=== PATIENT | male | born 1965 | race Caucasian/White ===

== ENCOUNTER 2017-04-06 19:15 | Inpatient (IN) | payer MEDICAID ==
[~2017-04-06] VITALS: Ht 185.4 cm; Wt 84.4 kg
[~2017-04-06 19:15] MED LIST: NO CURRENT MEDS
--- NOTE | 2017-04-06 19:15 | NUR ---
[facility] for c/o N/V w/ coffee ground emesis, hx liver cirrhosis, last drank etoh x tuesday. AOx4, afebrile w/ resp even & unlabored, denies any sob, no pain w/ no active N/V at this time, ble pedal edema+1, report recently had to have blood transfusions while at [facility] for GI bleed x last tuesday. On continuous monitoring. Dr. Hernandez at bedside for further eval.
[2017-04-06 19:47] LABS: BASOPHILS # (AUTO) 0.1 /CMM (0.0-0.2); BASOPHILS % (AUTO) 0.9 % (0.0-2.0); EOSINOPHILS # (AUTO) 0.1 /CMM (0.0-0.7); EOSINOPHILS % (AUTO) 0.9 % (0.0-6.0); LYMPHOCYTES # (AUTO) 2.3 /CMM (0.8-4.8); LYMPHOCYTES % (AUTO) 30.2 % (20.0-44.0); MEAN CORPUSCULAR HEMOGLOBIN 30 PG (26.0-33.0); MEAN CORPUSCULAR HGB CONC 34 g/dl (31.0-36.0); MEAN CORPUSCULAR VOLUME 86 fL (80-96); MONOCYTES # (AUTO) 0.7 /CMM (0.1-1.30); MONOCYTES % (AUTO) 9.5 % (2.0-12.0); NEUTROPHILS # (AUTO) 4.4 /CMM (1.8-8.9); NEUTROPHILS % (AUTO) 58.5 % (43.0-81.0); PLATELET COUNT (AUTO) 144 /CMM (150-450); RDW COEFFICIENT OF VARIATION 18.4 (11.5-15.0); RED BLOOD CELL COUNT(AUTO) 2.32 MIL/uL (4.5-6.0); WHITE BLOOD COUNT (AUTO) 7.6 K/uL (4.3-11.0)
[2017-04-06 19:51] LABS: HEMATOCRIT 20 % (39-51); HEMOGLOBIN 6.9 g/dL (13.5-17.5)
[2017-04-06 19:53] LABS: CALCIUM, SERUM 7.7 mg/dL (8.5-10.1); CREATININE 0.9 mg/dL (0.6-1.3); POTASSIUM 5.2 mmol/L (3.5-5.1)
[2017-04-06 19:58] LABS: INR 1.53 (0.87-1.13); PROTHROMBIN TIME 16.3 SECS (9.5-12.7)
[2017-04-06 20:03] LABS: ALBUMIN 1.8 g/dL (3.4-5.0); BILIRUBIN,DIRECT 0.3 mg/dL (0.0-0.2); BILIRUBIN,TOTAL 0.6 mg/dL (0.2-1.0); TOTAL PROTEIN, SERUM 5.7 g/dL (6.4-8.2)
--- NOTE | 2017-04-06 20:16 | NUR ---
Dr. Hernandez at bedside for update on pt status.
[2017-04-06] MEDS ORDERED: VITAMIN B1 PO (20:19)
[2017-04-06] MEDS ORDERED: PROP20TA22 PO (20:19)
[2017-04-06] MEDS ORDERED: CIPR500T5 PO (20:19)
[2017-04-06] MEDS ORDERED: FOLI1TAB16 PO (20:19)
--- NOTE | 2017-04-06 20:22 | NUR ---
Dr. Hernandez at bedside talking w/ pt, updating pt on risks and benefits of blood transfusion. Consent for blood transfusion signed & received by pt.
--- NOTE | 2017-04-06 20:29 | NUR ---
PAGED DR ANDREW CAPPS
[2017-04-06] MEDS ORDERED: PANTOPRAZOLE 80 MG in IV NS 0.9% 500 ML IV ONE (20:30)
[2017-04-06] MEDS ORDERED: OCTREOTIDE 1,250 MCG in IV NS 0.9% 250 ML IV ONE (20:30)
[2017-04-06] MEDS ORDERED: PANTOPRAZOLE 80 MG in IV NS 0.9% 100 ML IV ONE (20:30)
[2017-04-06] MEDS ORDERED: OCTREOTIDE 50 MCG/ML AMPUL IV ONE (20:30)
[2017-04-06] MEDS ORDERED: PANTOPRAZOLE 40 MG VIAL ONE (20:31)
[2017-04-06] MEDS ORDERED: IV NS 0.9% 100 ML IV ONE (20:31)
[2017-04-06] MEDS ORDERED: IV SET PRIMARY PUMP SET 1 EA INFUS.SET MC ONE (20:31)
[2017-04-06] MEDS ORDERED: OCTREOTIDE 100 MCG/ML VIAL ONE (20:32)
[2017-04-06 20:38] LABS: BAND % (MANUAL) 2 % (0.0-5.0); LYMPHOCYTES % (MANUAL) 26 % (16-48); MONOCYTES % (MANUAL) 2 % (0-11.0); NEUTROPHILS % (MANUAL) 70 (42-76); PLATELET ESTIMATE DECREASED
[2017-04-06 20:39] LABS: ANISOCYTOSIS 1+
--- NOTE | 2017-04-06 20:55 | NUR ---
Report given to EMMANUELLE Moe for pt admission to [facility] rm [id number].
--- NOTE | 2017-04-06 21:42 | NUR ---
pt resting comfortably in bed w/ resp even & unlabored, nad noted. On continuous monitoring. Awaiting midline nurse for midline insertion.
--- NOTE | 2017-04-06 22:04 | NUR ---
PAGED ANDREW CAPPS
--- NOTE | 2017-04-06 22:31 | NUR ---
Blood transfusion verified w/ EMMANUELLE Guzmán. Infusing as ordered, on continuous monitoring w/ no adverse side effects to blood products noted.
--- NOTE | 2017-04-06 22:31 | NUR ---
Dr. Mcclain at bedside for eval.
--- NOTE | 2017-04-06 22:51 | NUR ---
PT TRANSFERRED VIA GURNEY BY ALS PROTOCOL TO [facility] RM [id number], ON CONTINUOUS MONITORING W/ BLOOD TRANSFUSION INFUSING EN ROUTE AND ENDORSED TO EMMANUELLE DEL TORO FOR JER.
[2017-04-06 23:00] VITALS: BP 99/54
--- NOTE | 2017-04-06 23:15 | NUR ---
SENIOR FRONT END DEVELOPER; RECEIVED PT FROM ER AT 2255, PT IS A/O X4, AMBULATORY, ADMITTED FOR GI BLEED, LOW H/H, BLOOD TRANSFUSION ONGOING, ON ROOM AIR, SATURATING 98%, NO DISTRESS. ONLY ONE IV ACCESS ON LEFT EJ#18, AWAITING FOR MIDLINE LINE INSERTION. PT DENIED PAIN AT THIS TIME. V/S STABLE. AFEBRILE. ALL ADMISSION ASSESSMENT DONE. SKIN IS INTACT EXCEPT LEFT POSTERIOR ANKLE SOME KIND OF TISSUE GROWTH NOTED. PT IS FULL CODE, ADVANCE DIRECTIVE DISCUSSED WITH PT. PT WANTS TO FULL CODE. PT LIVES WITH FAMILY, DRINKS ALCOHOL EVERYDAY ALONG WITH SMOKE DAILY. SAFETY PRECAUTION PLACED. CALL LIGHT EASILY REACH. WILL FOLLOW UP MD ORDERS.
[2017-04-06] MEDS ORDERED: IV NS 0.9% 1,000 ML IV PRN (23:46)
--- NOTE | 2017-04-06 23:59 | NUR ---
BAR STEWARD; BLOOD TRANSFUSION ONGOING, NO ANY ADVERSE REACTION NOTED. SANDOSTATIN DRIP RUNNING AT 10 ML/HR. PROTONIX DRIP NOT STARTED YET DUE TO NO IV ACCESS, AWAITING PICC NURSE TO INSERT MIDLINE. PT IS VERY HARD STICK.
[2017-04-07] VITALS (7 sets, daily range): BP systolic 91–110; BP diastolic 45–60
[2017-04-07] MEDS ORDERED: MAG HYDROX/AL HYDROX/SIMETH 30 ML UDC PO PRN
[2017-04-07] MEDS ORDERED: ACETAMINOPHEN 325 MG TABLET PO PRN
[2017-04-07] MEDS ORDERED: MORPHINE SULFATE INJ 2 MG/ML DISP.SYRIN IV PRN
[2017-04-07] MEDS ORDERED: Z GUARD REMEDY 2 OZ OINT TP PRN
[2017-04-07] MEDS ORDERED: MAGNESIUM HYDROXIDE 30 ML UDC PO PRN
[2017-04-07] MEDS ORDERED: ONDANSETRON HCL/PF 4 MG/2 ML VIAL IVP PRN
[2017-04-07] MEDS ORDERED: OCTREOTIDE 1,250 MCG in IV NS 0.9% 247.5 ML IV PRN ×2
--- NOTE | 2017-04-07 00:55 | NUR ---
UNARMED SECURITY GUARD: IST UNIT OF PRBC DONE, NO REACTION NOTED. 2ND UOIN Addendum: 04/07/17 at 0057 by ELIJAH CHAMBERS RN 2ND UNIT ONGOING, THERE IS SOME ISSUE DURING VERIFYING BLOOD, ONE OF THE BARCODE DIDN'T SCAN BUT THE BARCODE NUMBERS ARE CORRECT. ABLE TO SCAN UNIT NUMBER BUT UNABLE TO SCAN PRODUCT NUMBER. VERIFIED WITH ANOTHER RN/EYAL CHARGE NURSE. KEEP MONITORING.
[2017-04-07] MEDS ORDERED: IV NS 0.9% 500 ML IV ONE (00:56)
[2017-04-07] MEDS ORDERED: BLOOD IV SET 1 EA INFUS.SET MC ONE (00:56)
[2017-04-07] MEDS ORDERED: IV NS 0.9% 1,000 ML ONE (01:25)
[2017-04-07] MEDS: PANTOPRAZOLE 80 MG in IV NS 0.9% 500 ML IV PRN ×2 (02:13→08:56)
[2017-04-07] MEDS ORDERED: CYAN100T3 PO (07:25)
--- NOTE | 2017-04-07 07:28 | NUR ---
INITIAL [facility] RN NOTE RCVD PT AWAKE AND ALERT SHOWING NO S/O DISTRESS OR C/O PAIN VERBALIZED. SR ON TELE W/OCCASIONAL PACs. CANE OBSERVED AT BEDSIDE PER PT HE USES IT TO SUPPORT HIS BACK INJURY. IV SITES C/D/I/PATENT. NO S/O INFILTRATION OR PHLEBITIS OBSERVED. IVF INFUSING. CALL LIGHT WITHIN REACH. BED IN LOW AND LOCKED POSITION. WILL CONTINUE TO MONITOR PT FOR SAFETY AND COMFORT.
[2017-04-07 07:32] LABS: BASOPHILS % (AUTO) 0.5 % (0.0-2.0); EOSINOPHILS # (AUTO) 0.1 /CMM (0.0-0.7); EOSINOPHILS % (AUTO) 1.4 % (0.0-6.0); HEMATOCRIT 21 % (39-51); HEMOGLOBIN 7.1 g/dL (13.5-17.5); LYMPHOCYTES # (AUTO) 1.4 /CMM (0.8-4.8); LYMPHOCYTES % (AUTO) 31.4 % (20.0-44.0); MEAN CORPUSCULAR HEMOGLOBIN 29 PG (26.0-33.0); MEAN CORPUSCULAR HGB CONC 33 g/dl (31.0-36.0); MEAN CORPUSCULAR VOLUME 87 fL (80-96); MONOCYTES # (AUTO) 0.5 /CMM (0.1-1.30); MONOCYTES % (AUTO) 11.2 % (2.0-12.0); NEUTROPHILS # (AUTO) 2.5 /CMM (1.8-8.9); NEUTROPHILS % (AUTO) 55.5 % (43.0-81.0); PLATELET COUNT (AUTO) 79 /CMM (150-450); RDW COEFFICIENT OF VARIATION 17.2 (11.5-15.0); RED BLOOD CELL COUNT(AUTO) 2.47 MIL/uL (4.5-6.0); WHITE BLOOD COUNT (AUTO) 4.5 K/uL (4.3-11.0)
[2017-04-07 07:54] LABS: LDL 32 mg/dL (0-99); THYROID STIMULATING HORMONE 0.815 uIU/mL (0.358-3.74); TRIGLYCERIDES 40 mg/dL (30-150)
[2017-04-07 07:59] LABS: CALCIUM, SERUM 6.4 mg/dL (8.5-10.1); CARBON DIOXIDE 22 mmol/L (21-32); CHLORIDE 111 mmol/L (98-107); CREATININE 0.9 mg/dL (0.6-1.3); GFR 88 mL/min (>60); GLUCOSE 83 mg/dL (74-106); IRON, SERUM 23 ug/dl (50-175); MAGNESIUM 1.4 mg/dL (1.8-2.4); PHOSPHORUS 2.6 mg/dL (2.5-4.9); SODIUM SERUM 140 mmol/L (136-145); TOTAL IRON BINDING CAPACITY 279 ug/dl (250-450); UREA NITROGEN, BLOOD 26 mg/dL (7-18)
[2017-04-07 08:17] LABS: CHOLESTEROL 47 mg/dL (<200)
[2017-04-07 08:19] LABS: HDL CHOLESTEROL < 10 mg/dL (40-60)
[2017-04-07 09:05] LABS: BAND % (MANUAL) 1 % (0.0-5.0); EOSINOPHILS % (MANUAL) 2 % (0-4); LYMPHOCYTES % (MANUAL) 27 % (16-48); MONOCYTES % (MANUAL) 6 % (0-11.0); NEUTROPHILS % (MANUAL) 64 (42-76)
[2017-04-07 09:06] LABS: ANISOCYTOSIS 1+; HYPOCHROMASIA 1+; PLATELET ESTIMATE DECREASED
--- NOTE | 2017-04-07 09:11 | NUR ---
NURSE HEAD NOTE SPOKE WITH PT AT BEDSIDE HE STATES THAT HE TAKES METHADONE 25MG ONCE A DAY. MEDICATION IS NOT LISTED IN HIS HOME MEDICATION PROFILE. PT STATES THAT METHADONE WAS GIVEN TO HIM WHILE HE WAS BEING TREATED AT [facility] LAST WEEK AND HE GETS IT FROM A CLINIC IN THE AREA. NATY SAHU INFORMED OF ABOVE TO SEE IF SHE CAN ORDER IT FOR PT. WILL F/U.
--- NOTE | 2017-04-07 11:09 | NUR ---
[facility] RN NOTE SPOKE WITH PT AT BEDSIDE PT APPEARS ANXIOUS ANS STATES THAT HE WILL LEAVE IF HE DOESN'T GET HIS METHADONE. NATY SAHU INFORMED. PT WAS ALSO INFORMED THAT NO PHYSICIAN WILL D/C HIM IN HIS CURRENT CONDITION. PT AWARE OF THIS AND STATES THAT IS WILLING TO SIGN AMA FORM. NATY SAHU INFORMED OF THIS WELL.
[2017-04-07] MEDS ORDERED: Magnesium 1GM/D5W 100ML PREMIX 100 ML IV SCH (12:11)
[2017-04-07] MEDS ORDERED: METHADONE HCL (40MG) 40 MG TABLET.SOL PO SCH (12:30)
[2017-04-07] MEDS ORDERED: PANTOPRAZOLE 40 MG VIAL IV SCH (13:00)
--- NOTE | 2017-04-07 13:53 | NUR ---
[facility] RN NOTE PT LEFT AMA. PT ALERT X4 UNDERSTANDS THE RISKS OF LEAVING AGAINST MEDICAL ADVICE. EDUCATION MATERIALS EXPLAINED AND HANDED TO PT. SR ON TELE. PT VOIDED TO URINAL ORANGE COLORED URINE. ONE BM BLACK/TARRY. PT VERBALIZES UNDERSTANDING OF HIS CONDITION AND STATES THAT WILL GO TO [facility] BECAUSE THEY ARE ABLE TO DISPENSE HIS METHADONE. PT WAS ASKED SINCE THIS AM THE NAME AND NUMBER FOR THE CLINIC WHERE HE GETS HIS METHADONE AND HE DODGE QUESTIONS, NOT BEING ABLE TO PROVIDE REQUESTED INFORMATION STATING THAT HE HAD TO FILL OUT PAPERWORK AND IT WAS GOING TO TAKE TOO LONG. NATY SAHU INFORMED OF PT'S FINAL DECISION TO LEAVE. PT WAS OFFERED TO GET THE BLOOD TRANSFUSION BEFORE LEAVING BUT DECLINED. PT'S IV SITES WERE DISCONTINUED, PRESSURE DRESSINGS APPLIED, PT'S DAUGHTER WAS CONTACTED BY PHONE AND TOLD HER THAT HER DAD IS HEADING HOME WITH A PLAN TO GO TO [facility] TO CONTINUE CARE. SOON, HATCHERY MANAGER INFORMED OF ABOVE.
== END 2017-04-07 16:20 | disposition left against medical advice (07) ==
LOC: ER 19:16 → TELE1 22:10 → TELE-TD 23:16
PROC: 30233N1 Transfusion of Nonautologous Red Blood Cells into Peripheral Vein, Percutaneous Approach (ICD-10-PCS; principal; 2017-04-06)
DX: K74.60 Unspecified cirrhosis of liver (principal); I85.11 Secondary esophageal varices with bleeding; K76.6 Portal hypertension; D69.6 Thrombocytopenia, unspecified; D62 Acute posthemorrhagic anemia; B19.20 Unspecified viral hepatitis C without hepatic coma; G89.29 Other chronic pain; M54.9 Dorsalgia, unspecified
CPT/HCPCS: 36415; 80048-TC; 80061-TC; 80076-TC; 82728-TC; 82746; 83540-TC; 83690-TC; 83735-TC; 84100-TC; 84443-TC; 85025-TC; 85730-TC; 86850-TC; 86921-TC; 87081-TC; A4606; C9113; J2354; J7030; J7040; J7050; P9016-BL; Z7610